=== PATIENT | male | born 1975 | race African-American/Black ===

== ENCOUNTER 2016-07-28 11:33 | Emergency (ER) | payer SELFPAY ==
[~2016-07-28] VITALS: Ht 180.3 cm; Wt 97.7 kg
[2016-07-28] MEDS ORDERED: HYDROCODONE/ACE1 TAB PO (14:11)
[2016-07-28] MEDS ORDERED: DELTASONE20 MG PO (14:11)
[2016-07-28 14:14] VITALS: BP 140/89
== END 2016-07-28 14:25 | disposition home or self-care (01) | DRG 563 ==
LOC: ED 11:33
DX: S39.012A Strain of muscle, fascia and tendon of lower back, initial encounter (principal); M54.42 Lumbago with sciatica, left side; X50.0XXA Overexertion from strenuous movement or load, initial encounter; Y93.89 Activity, other specified; Y92.89 Other specified places as the place of occurrence of the external cause